=== PATIENT | female | born 1990 | race American Indian/Alaskan Native ===

== ENCOUNTER 2019-04-20 17:07 | Inpatient (IN) | payer MEDICAID ==
[2019-04-20] MEDS ORDERED: Metoclopramide 10 MG/2 ML SDV IVPUSH ONE (17:41)
[2019-04-20] MEDS ORDERED: Citric Acid/Sodium Citrate Solution 30 ML Cup PO ONE (17:41)
[2019-04-20] MEDS ORDERED: Sodium Chloride 0.9% 10 ML Syringe FLUSH PRN (17:41)
[2019-04-20] MEDS ORDERED: Lactated Ringers 1,000 ML IV SCH (17:45)
[2019-04-20] MEDS ORDERED: Lactated Ringers 1,000 ML ONE ×3 (17:48→19:12)
[2019-04-20] MEDS ORDERED: Phenylephrine 1% 10 MG/ML SDV ONE (17:56)
[2019-04-20] MEDS ORDERED: ceFAZolin 1 GM Vial ONE (17:56)
[2019-04-20] MEDS ORDERED: Oxytocin 10 Units/1 ML SDV ONE (17:57)
[2019-04-20] MEDS ORDERED: Morphine PF 10 MG/10 ML SDV ONE (17:57)
--- NOTE | 2019-04-20 18:11 | PCM.LDHP ---
L&D History of Present Illness - General Date of Service: 04/20/19 Admit Problem/Dx: Patient Status Order with Admit Dx/Problem 04/20/19 17:15 Patient Status [ADT] Routine 04/20/19 17:26 Patient Status [ADT] Routine Admission Diagnosis/Problem Admission Diagnosis/Problem Source of Information: Patient History Limitations: Reports: No Limitations - History of Present Illness Introduction:: Patient is a 29 y/o at 39 6/7 wks who presents to L&D with concerns of contractions. Have been present since about 1:00 pm. Worsening recently. No LOF or VB. has been notable for scant care (has had 3 appointments), history of drug use, and hep C positive status. 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: : 4 Para: 3 LMP (Approximate): Psychiatric History: Reports: Addiction, Anxiety, Depression - Infectious Disease History Infectious Disease History: Reports: Hepatitis C - Past Surgical History Female Surgical History: Reports: Section (x3) Musculoskeletal Surgical History: Reports: Other (See Below) Other Musculoskeletal Surgeries/Procedures:: ankle surgery Social & Family History - Tobacco Use Smoking Status *Q: Never Smoker - Alcohol Use Alcohol Use History: No - Recreational Drug Use Recreational Drug Use: Yes Drug Use in Last 12 Months: Yes Recreational Drug Type: Reports: Methamphetamine, Other (see below) (suboxone use - not prescribed to patient) H&P Review of Systems - Review of Systems: Review Of Systems: See Below General: Reports: No Symptoms Pulmonary: Reports: No Symptoms Cardiovascular: Reports: No Symptoms Gastrointestinal: Reports: Abdominal Pain (contractions ) Genitourinary: Reports: No Symptoms Musculoskeletal: Reports: No Symptoms Psychiatric: Reports: Depression, Anxiety L&D Exam - Exam Exam: See Below - Vital Signs Weight: 73.482 kg - OB Specific Contraction Intensity: Moderate Movement: Active Heart Tones: Present Heart Tones per Min: 145 Heart Rate (FHR) Variability: Moderate (6-25 bmp) Presentation: Vertex - Antunez Score Antunez Score Cervix Position: Midposition Antunez Score Consistency: Soft Antunez Score Effacement: >80% Antunez Score Dilation: 3-4 cm Antunez Score 's Station: -2 Antunez Score Total: 9 - Exam General: Alert, Oriented, Cooperative Lungs: Clear to Auscultation, Normal Respiratory Effort Cardiovascular: Regular Rate, Regular Rhythm GI/Abdominal Exam: Soft, Non-Tender Genitourinary: Normal external exam Extremities: Normal Inspection Skin: Warm, Dry, Intact - Patient Data Lab Results Last 24 hrs: Laboratory Results - last 24 hr 04/20/19 Range/Units 05:56 WBC 6.94 (3.98-10.04) K/mm3 RBC 3.80 L (3.98-5.22) M/mm3 Hgb 10.7 L (11.2-15.7) gm/dl Hct 32.3 L (34.1-44.9) % MCV 85.0 (79.4-94.8) fl MCH 28.2 (25.6-32.2) pg MCHC 33.1 (32.2-35.5) g/dl RDW Std Deviation 41.1 (36.4-46.3) fL Plt Count 211 (182-369) K/mm3 MPV 11.1 (9.4-12.3) fl Neut % (Auto) 73.1 H (34.0-71.1) % Lymph % (Auto) 16.1 L (19.3-51.7) % [place] % (Auto) 9.4 (4.7-12.5) % Eos % (Auto) 1.0 (0.7-5.8) Baso % (Auto) 0.1 (0.1-1.2) % Neut # (Auto) 5.07 (1.56-6.13) K/mm3 Lymph # (Auto) 1.12 L (1.18-3.74) K/mm3 [place] # (Auto) 0.65 H (0.24-0.36) K/mm3 Eos # (Auto) 0.07 (0.04-0.36) K/mm3 Baso # (Auto) 0.01 (0.01-0.08) K/mm3 Result Diagrams: 04/20/19 05:56 - Problem List (1) 39 weeks gestation of SNOMED Code(s): 00810713 ICD Code: Z3A.39 - 39 WEEKS GESTATION OF Status: Acute Current Visit: Yes (2) History of SNOMED Code(s): 505862551 ICD Code: Z98.891 - HISTORY OF UTERINE SCAR FROM PREVIOUS SURGERY Status: Acute Current Visit: Yes (3) Hepatitis C SNOMED Code(s): 33436359 ICD Code: B19.20 - UNSPECIFIED VIRAL HEPATITIS C WITHOUT HEPATIC COMA Status: Acute Current Visit: Yes (4) History of inadequate care SNOMED Code(s): 924962876 ICD Code: O09.30 - SUPRVSN OF PREG W INSUFFICIENT ANTENAT CARE, UNSP TRIMESTER Status: Acute Current Visit: Yes (5) History of drug use SNOMED Code(s): 099400292 ICD Code: Z87.898 - PERSONAL HISTORY OF OTHER SPECIFIED CONDITIONS Status: Acute Current Visit: Yes Problem List Initiated/Reviewed/Updated: Yes Orders Last 24hrs: Active Orders 24 hr Category Date Time Status Patient Status [ADT] Routine ADT 04/20/19 17:15 Active Communication Order [RC] ROUTINE Care 04/20/19 17:41 Active Heart Tones [RC] PER UNIT ROUTINE Care 04/20/19 17:41 Active Non Stress Test [RC] PER UNIT ROUTINE Care 04/20/19 17:26 Active Non Stress Test [RC] PER UNIT ROUTINE Care 04/20/19 17:41 Active Peripheral IV Care [RC] . DIRECTED Care 04/20/19 17:42 Active Procedure Site Prep Instruct [RC] ASDIRECTED Care 04/20/19 17:41 Active Verify Patient Consent Obtain [RC] PER UNIT ROUTINE Care 04/20/19 17:41 Active Vital Signs [RC] PER UNIT ROUTINE Care 04/20/19 17:26 Active Vital Signs [RC] PFP Care 04/20/19 17:41 Active Nothing Per Oral Diet [DIET] Diet 10/20/19 Dinner Active DRUG SCREEN, URINE [URCHEM] Stat Lab 04/20/19 17:41 Ordered RAPID PLASMA REAGIN,RPR [CHEM] Routine Lab 04/20/19 05:56 Received TYPE AND SCREEN [BBK] Routine Lab 04/20/19 05:56 Received Lactated Ringers [Ringers, Lactated] 1,000 ml Med 04/20/19 17:45 Active IV ASDIRECTED Sodium Chloride 0.9% [Saline Flush] Med 04/20/19 17:41 Active 10 ml FLUSH ASDIRECTED PRN Peripheral IV Insertion Adult [OM.PC] Routine Oth 04/20/19 17:41 Ordered Schedule Procedure [COMM] Per Unit Routine Oth 04/20/19 17:41 Ordered Resuscitation Status Routine Resus Stat 04/20/19 17:41 Ordered Medication Orders Lactated Ringer's (Ringers, Lactated) 1,000 mls @ 125 mls/hr IV ASDIRECTED SHEA Sodium Chloride (Saline Flush) 10 ml FLUSH ASDIRECTED PRN PRN Reason: Keep Vein Open Assessment/Plan Comment:: 29 y/o at 39 6/7 wks who presents in labor - history of 3 prior c- sections * Labs * UDS for patient * Randy CHARLES * Consent reviewed and signed * Anesthesia and Peds made aware
--- NOTE | 2019-04-20 18:18 | PCM.OPNOTE ---
- General Post-Op/Procedure Note Date of Surgery/Procedure: 04/20/19 Operative Procedure(s): Repeat low transverse Findings: Minimal scarring between rectus and fascia. Bladder somewhat adherent to lower uterine segment. Baby boy in a vertex presentation with APGARS of 6 & 9. Weight of 3480 grams. Pre Op Diagnosis: 39 weeks. Hx of x3 Post-Op Diagnosis: Same Anesthesia Technique: Spinal Primary Surgeon: Raquel Bell Secondary Surgeon: Omar Nguyen Jr Anesthesia Provider: Hood Stephens Reason Route [employer] Was Necessary: Speed, safety of procedure Pathology: Cord blood obtained. Placenta discarded Fluid Replacement, Intraop: 3,000 Output, Urine Amount: 125 EBL in mLs: 850 Complications: None Condition: Good Free Text/Narrative:: The risks, benefits, indications, potential complications, and alternatives were explained to the patient and informed consent obtained. After induction of anesthesia, the patient was placed in a supine position and then draped and prepped in the usual sterile manner. A Pfannenstiel incision was made and carried down through the subcutaneous tissue to the fascia. Fascial incision was made and extended transversely. The fascia was from the underlying rectus tissue superiorly and inferiorly. The peritoneum was identified and entered. Peritoneal incision was extended longitudinally. The utero-vesical peritoneal reflection was incised transversely and the bladder flap was bluntly freed from the lower uterine segment. A low transverse uterine incision was made sharply with a scalpel and extended bluntly in a cephalocaudad direction. An attempt was made to deliver the baby from a vertex presentation, but resistance encountered at rectus muscles. Cautery used to slightly extend incision laterally. Baby then able to be successfully delivered. APGARS as above. After the umbilical cord was clamped and cut cord blood was obtained for evaluation. The placenta was removed intact and appeared normal. The uterus was exteriorized and cleared of clots. The uterine outline, tubes and ovaries appeared normal. The uterine incision was closed with running locked sutures of 0 Vicryl. Hemostasis noted. The uterus was then placed back into the abdomen. The infracolic gutters were cleared of blood clots. The fascia was then reapproximated with running sutures of 0 Vicryl. The subcutaneous tissue was irrigated with sterile warm normal saline, hemostasis obtained with cautery. This layer also closed with a running 0 vicryl. The skin was reapproximated with running Subcuticular 4-0 monocryl sutures. Instrument, sponge, and needle counts were correct prior the abdominal closure and at the conclusion of the case.
[2019-04-20] MEDS ORDERED: Ketorolac 30 MG/ML SDV ONE (19:09)
[2019-04-20] MEDS ORDERED: diphenhydrAMINE 50 MG/ML SDV IVPUSH PRN ×2 (19:27→19:58)
--- NOTE | 2019-04-20 19:28 | PCM.POSTAN ---
POST ANESTHESIA ASSESSMENT - MENTAL STATUS Mental Status: Alert, Oriented - RESPIRATORY Respiratory Status: Respiratory Rate WNL, Airway Patent, O2 Saturation Stable - CARDIOVASCULAR CV Status: Pulse Rate WNL, Blood Pressure Stable - GASTROINTESTINAL GI Status: No Symptoms - PAIN Pain Score: 0 - POST OP HYDRATION Hydration Status: Adequate & Stable - OBSERVATIONS Free Text/Narrative:: no anesthesia complications noted
[2019-04-20] MEDS ORDERED: Oxytocin/Lactated Ringers 10 UNIT/1,000 ML BAG IV ONE (19:31)
[2019-04-20] MEDS ORDERED: Ondansetron 4 MG/2 ML SDV IV PRN (19:58)
[2019-04-20] MEDS ORDERED: ePHEDrine 50 MG/ML SDV IVPUSH PRN (19:58)
[2019-04-20] MEDS ORDERED: Dextrose 5%-Lactated Ringers 1,000 ML IV SCH (19:58)
[2019-04-20] MEDS ORDERED: Methylergonovine 0.2 MG/1 ML Amp ONE (20:39)
[2019-04-20] MEDS ORDERED: Misoprostol 200 MCG Tab ONE (20:39)
[2019-04-20] MEDS: Methylergonovine 0.2 MG/1 ML Amp IM SCH (20:45)
[2019-04-20] MEDS ORDERED: Misoprostol 200 MCG Tab PO ONE (20:45)
[2019-04-20] MEDS ORDERED: fentaNYL 100 MCG/2 ML SDV IVPUSH ONE (21:33)
[2019-04-20] MEDS ORDERED: fentaNYL 100 MCG/2 ML SDV ONE (21:33)
[2019-04-20] MEDS ORDERED: ceFAZolin 1 GM in Premix Bag 1 BAG IV ONE (21:59)
--- NOTE | 2019-04-20 21:59 | PCM.SN ---
- Free Text/Narrative Note: 2199 Called by nursing staff at 2029 due to slow bleeding from patient. Asked to given IM methergine x1 and buccal cytotec 600. In to see patient at 2114. Slight trickle at times noted. Exam done with some clot in JUAN. Manually extracted. Tone overall good. Will given dose of ancef and continue to monitor closely Raquel Bell MD
[2019-04-21] MEDS ORDERED: Methylergonovine 0.2 MG/1 ML Amp ONE (00:32)
[2019-04-21] MEDS: Acetaminophen/oxyCODONE 325-5 MG Tab PO PRN ×5 (00:35→21:04)
[2019-04-21] MEDS: Methylergonovine 0.2 MG/1 ML Amp IM SCH (00:45)
[2019-04-21] MEDS: Ketorolac 30 MG/ML SDV IVPUSH SCH ×3 (01:09→14:08)
--- NOTE | 2019-04-21 07:17 | PCM.PNPP ---
- General Info Date of Service: 04/21/19 Functional Status: Reports: Pain Controlled, Tolerating Diet, Ambulating, Urinating - Review of Systems General: Reports: No Symptoms Pulmonary: Reports: No Symptoms Cardiovascular: Reports: No Symptoms Gastrointestinal: Reports: Abdominal Pain (managed with medications) Genitourinary: Reports: No Symptoms Musculoskeletal: Reports: No Symptoms Neurological: Reports: No Symptoms - Patient Data Vital Signs - Most Recent: Last Vital Signs Temp 36.3 C 04/20/19 20:15 Pulse 63 04/20/19 20:15 Resp 16 04/21/19 07:00 BP 116/75 04/20/19 20:15 Pulse Ox 95 04/21/19 07:00 Weight - Most Recent: 73.482 kg I&O - Last 24 Hours: Intake & Output 04/20/19 04/21/19 04/21/19 22:59 06:59 14:59 Intake Total 300 3000 Output Total 125 125 Balance 175 2875 Lab Results - Last 24 Hours: Laboratory Results - last 24 hr 04/20/19 04/20/19 04/20/19 Range/Units 05:56 05:56 05:56 WBC 6.94 (3.98-10.04) K/mm3 RBC 3.80 L (3.98-5.22) M/mm3 Hgb 10.7 L (11.2-15.7) gm/dl Hct 32.3 L (34.1-44.9) % MCV 85.0 (79.4-94.8) fl MCH 28.2 (25.6-32.2) pg MCHC 33.1 (32.2-35.5) g/dl RDW Std Deviation 41.1 (36.4-46.3) fL Plt Count 211 (182-369) K/mm3 MPV 11.1 (9.4-12.3) fl Neut % (Auto) 73.1 H (34.0-71.1) % Lymph % (Auto) 16.1 L (19.3-51.7) % [place] % (Auto) 9.4 (4.7-12.5) % Eos % (Auto) 1.0 (0.7-5.8) Baso % (Auto) 0.1 (0.1-1.2) % Neut # (Auto) 5.07 (1.56-6.13) K/mm3 Lymph # (Auto) 1.12 L (1.18-3.74) K/mm3 [place] # (Auto) 0.65 H (0.24-0.36) K/mm3 Eos # (Auto) 0.07 (0.04-0.36) K/mm3 Baso # (Auto) 0.01 (0.01-0.08) K/mm3 Free T4 (0.76-1.46) ng/dL TSH 3rd Generation (0.358-3.74) uIU/mL Urine Opiates Screen (PIWXJP=360) Ur Buprenorphine Scrn (CUTOFF=10) Ur Oxycodone Screen (WJU6FS=001) Urine Methadone Screen (IBYEHA=173) Ur Propoxyphene Screen (SFGSDA=313) Ur Barbiturates Screen (ZVVBKH=197) Ur Tricyclics Screen (CCOMRT=046) Ur Phencyclidine Scrn (CUTOFF=25) Ur Amphetamine Screen (TKUCXG=673) U Methamphetamines Scrn (DRZLMJ=601) U Benzodiazepines Scrn (EGIUCH=841) U Cocaine Metab Screen (YUFXKS=688) U Marijuana (THC) Screen (CUTOFF=50) RPR Non-reactive (NONREACTIVE) Blood Type O POSITIVE Gel Antibody Screen Negative 04/20/19 04/20/19 04/21/19 Range/Units 05:56 18:00 05:50 WBC 11.01 H (3.98-10.04) K/mm3 RBC 3.94 L (3.98-5.22) M/mm3 Hgb 11.1 L (11.2-15.7) gm/dl Hct 33.3 L (34.1-44.9) % MCV 84.5 (79.4-94.8) fl MCH 28.2 (25.6-32.2) pg MCHC 33.3 (32.2-35.5) g/dl RDW Std Deviation 40.1 (36.4-46.3) fL Plt Count 201 (182-369) K/mm3 MPV 11.7 (9.4-12.3) fl Neut % (Auto) (34.0-71.1) % Lymph % (Auto) (19.3-51.7) % [place] % (Auto) (4.7-12.5) % Eos % (Auto) (0.7-5.8) Baso % (Auto) (0.1-1.2) % Neut # (Auto) (1.56-6.13) K/mm3 Lymph # (Auto) (1.18-3.74) K/mm3 [place] # (Auto) (0.24-0.36) K/mm3 Eos # (Auto) (0.04-0.36) K/mm3 Baso # (Auto) (0.01-0.08) K/mm3 Free T4 1.04 (0.76-1.46) ng/dL TSH 3rd Generation 0.400 (0.358-3.74) uIU/mL Urine Opiates Screen Negative (IYHVNS=267) Ur Buprenorphine Scrn Presumptive positive (CUTOFF=10) Ur Oxycodone Screen Negative (YGR3ZE=317) Urine Methadone Screen Negative (ELHBPB=963) Ur Propoxyphene Screen Negative (SCSQMQ=340) Ur Barbiturates Screen Negative (HBHWZI=825) Ur Tricyclics Screen Negative (AHQABY=268) Ur Phencyclidine Scrn Negative (CUTOFF=25) Ur Amphetamine Screen Negative (KZYIAX=466) U Methamphetamines Scrn Negative (HPEJMO=603) U Benzodiazepines Scrn Negative (YEONFL=254) U Cocaine Metab Screen Negative (EOXLUG=327) U Marijuana (THC) Screen Negative (CUTOFF=50) RPR (NONREACTIVE) Blood Type Gel Antibody Screen Med Orders - Current: Current Medications Diphenhydramine HCl (Benadryl) 25 mg IVPUSH Q6H PRN PRN Reason: Itching or Nausea Docusate Sodium (Colace) 100 mg PO Q12H PRN PRN Reason: Constipation Ephedrine Sulfate (Ephedrine Sulfate) 5 mg IVPUSH SEECOMMENT PRN PRN Reason: Other Ibuprofen (Motrin) 600 mg PO Q6H PRN PRN Reason: mild pain or fever Ketorolac Tromethamine (Toradol) 30 mg IVPUSH Q6H SHEA Stop: 04/21/19 12:16 Last Admin: 04/21/19 01:09 Dose: 30 mg Ondansetron HCl (Zofran) 4 mg IV Q8H PRN PRN Reason: Nausea/Vomiting Oxycodone/Acetaminophen (Percocet 325-5 Mg) 2 tab PO Q4H PRN PRN Reason: Pain (moderate 4-6) Last Admin: 04/21/19 05:30 Dose: 2 tab Discontinued Medications Citric Acid/Sodium Citrate (Bicitra Solution) 30 ml PO ONETIME ONE Stop: 04/20/19 17:42 Last Admin: 04/20/19 17:58 Dose: 30 ml Diphenhydramine HCl (Benadryl) 25 mg IVPUSH Q6H PRN PRN Reason: Itching Fentanyl (Sublimaze) Confirm Administered Dose 100 mcg .ROUTE .STK-MED ONE Stop: 04/20/19 21:34 Last Admin: 04/21/19 02:45 Dose: Not Given Fentanyl (Sublimaze) 100 mcg IVPUSH ONETIME ONE Stop: 04/20/19 21:34 Last Admin: 04/20/19 21:35 Dose: 100 mcg Lactated Ringer's (Ringers, Lactated) 1,000 mls @ 125 mls[facility] Last Admin: 04/20/19 18:23 Dose: 125 mls/hr Lactated Ringer's (Ringers, Lactated) Confirm Administered Dose 1,000 mls @ as directed .ROUTE .STK-MED ONE Stop: 04/20/19 17:49 Last Admin: 04/20/19 17:59 Dose: 999 mls/hr Oxytocin/Lactated Ringer's (Pitocin In Lr 10 Units/1,000 Ml) Confirm Administered Dose 10 unit in 1,000 mls @ as directed IV .STK-MED ONE Stop: 04/20/19 19:32 Dextrose/Lactated Ringer's (Dextrose 5%-Lactated Ringers) 1,000 mls @ 125 mls/ hr IV [facility] Stop: 04/21/19 03:57 Cefazolin Sodium/Dextrose 1 gm (/ Premix) 50 mls @ 100 mls/hr IV ONETIME ONE Stop: 04/20/19 22:28 Last Admin: 04/20/19 22:00 Dose: 100 mls/hr Cefazolin Sodium/Dextrose (Ancef) Confirm Administered Dose 50 mls @ as directed .ROUTE .STK-MED ONE Stop: 04/20/19 22:01 Last Admin: 04/21/19 02:46 Dose: Not Given Methylergonovine Maleate (Methergine) Confirm Administered Dose 0.2 mg .ROUTE .STK-MED ONE Stop: 04/20/19 20:40 Last Admin: 04/21/19 02:45 Dose: Not Given Methylergonovine Maleate (Methergine) Confirm Administered Dose 0.2 mg .ROUTE .STK-MED ONE Stop: 04/21/19 00:33 Last Admin: 04/21/19 02:46 Dose: Not Given Methylergonovine Maleate (Methergine) 0.2 mg IM Q4H SHEA Stop: 04/21/19 00:46 Last Admin: 04/21/19 00:45 Dose: 0.2 mg Metoclopramide HCl (Reglan) 10 mg IVPUSH ONETIME ONE Stop: 04/20/19 17:42 Last Admin: 04/20/19 17:57 Dose: 10 mg Misoprostol (Cytotec) Confirm Administered Dose 200 mcg .ROUTE .STK-MED ONE Stop: 04/20/19 20:40 Last Admin: 04/21/19 02:45 Dose: Not Given Misoprostol (Cytotec) 600 mcg PO ONETIME ONE Stop: 04/20/19 20:46 Last Admin: 04/20/19 20:45 Dose: 600 mcg Non-Formulary Medication (Venlafaxine [Effexor Xr]) 75 mg PO DAILY SHEA Sodium Chloride (Saline Flush) 10 ml FLUSH ASDIRECTED PRN PRN Reason: Keep Vein Open - Infant Interaction Disposition, : [place] in Room with Family Interaction: Holding Feeding: Bottle Fed Infant Support Person: Mother - Recovery Exam Fundal Tone: Firm Fundal Level: At Umbilicus Fundal Placement: Midline Lochia Amount: Small Lochia Color: Rubra/Red Perineum Description: Intact, Minimal Bruising/Swelling Bladder Status: Voiding Urinary Elimination: Voided - Exam General: Alert, Oriented, Cooperative Lungs: Clear to Auscultation, Normal Respiratory Effort Cardiovascular: Regular Rate, Regular Rhythm GI/Abdominal Exam: Soft, Tender (appropriate post op) Extremities: Normal Inspection Skin: Warm, Dry, Intact Wound/Incisions: Healing Well, No Drainage - Problem List & Annotations (1) 39 weeks gestation of SNOMED Code(s): 05345934 Code(s): Z3A.39 - 39 WEEKS GESTATION OF Status: Acute Current Visit: Yes (2) History of SNOMED Code(s): 694440657 Code(s): Z98.891 - HISTORY OF UTERINE SCAR FROM PREVIOUS SURGERY Status: Acute Current Visit: Yes (3) Hepatitis C SNOMED Code(s): 75893872 Code(s): B19.20 - UNSPECIFIED VIRAL HEPATITIS C WITHOUT HEPATIC COMA Status : Acute Current Visit: Yes (4) History of inadequate care SNOMED Code(s): 310613045 Code(s): O09.30 - SUPRVSN OF PREG W INSUFFICIENT ANTENAT CARE, UNSP TRIMESTER Status: Acute Current Visit: Yes (5) History of drug use SNOMED Code(s): 326543924 Code(s): Z87.898 - PERSONAL HISTORY OF OTHER SPECIFIED CONDITIONS Status: Acute Current Visit: Yes - Problem List Review Problem List Initiated/Reviewed/Updated: Yes - My Orders Last 24 Hours: My Active Orders 04/20/19 17:41 Resuscitation Status Routine 04/20/19 19:58 Activity as Tolerated [RC] .Routine Antiembolic Devices [RC] PER UNIT ROUTINE Communication Order [RC] PER UNIT ROUTINE Intake and Output [RC] Q4H May Shower [RC] PER UNIT ROUTINE Notify Provider Intake and Out [RC] ASDIRECTED RT Incentive Spirometry [RC] Q2HWA Acetaminophen/oxyCODONE [Percocet 325-5 MG] 2 tab PO Q4H PRN Docusate Sodium [Colace] 100 mg PO Q12H PRN Ondansetron [Zofran] 4 mg IV Q8H PRN diphenhydrAMINE [Benadryl] 25 mg IVPUSH Q6H PRN ePHEDrine [ePHEDrine sulfate] 5 mg IVPUSH SEECOMMENT PRN Assess Lochia [WOMSER] Per Unit Routine Assess Uterine Involution [WOMSER] Per Unit Routine Breast Pump [WOMSER] Per Unit Routine Peripheral IV Discontinue [OM.PC] Routine Sequential Compression Device [OM.PC] Per Unit Routine 04/20/19 Breakfast Regular Diet [DIET] 04/21/19 00:15 Ketorolac [Toradol] 30 mg IVPUSH Q6H 04/21/19 18:15 Ibuprofen [Motrin] 600 mg PO Q6H PRN 04/21/19 19:35 Urinary Catheter Removal [RC] Per Unit Routine - Assessment Assessment:: 29 y/o G4 now P4004 POD#1 from [facility] 39 6/ wks - Plan Plan:: * Routine cares * Bottle feeding * Discharge home in 1-2 days
--- NOTE | 2019-04-21 07:25 | PCM48HPAN ---
Post Anesthesia Note - EVALUATION WITHIN 48HRS OF ANESTHETIC Vital Signs in Normal Range: Yes Patient Participated in Evaluation: Yes Respiratory Function Stable: Yes Airway Patent: Yes Cardiovascular Function Stable: Yes Hydration Status Stable: Yes Pain Control Satisfactory: Yes Nausea and Vomiting Control Satisfactory: Yes Mental Status Recovered: Yes Vital Signs: Last Vital Signs Temp 36.3 C 04/20/19 20:15 Pulse 63 04/20/19 20:15 Resp 16 04/21/19 07:00 BP 116/75 04/20/19 20:15 Pulse Ox 95 04/21/19 07:00
[2019-04-21] MEDS ORDERED: VENLAFAXINE 75 MG PO SCH (09:00)
[2019-04-21] MEDS: Ibuprofen 600 MG Tab PO PRN (22:57)
[2019-04-22] MEDS: Acetaminophen/oxyCODONE 325-5 MG Tab PO PRN ×3 (05:20→17:41)
--- NOTE | 2019-04-22 08:18 | PCM.PNPP ---
- General Info Date of Service: 04/22/19 Functional Status: Reports: Pain Controlled, Tolerating Diet, Ambulating, Urinating - Review of Systems General: Reports: No Symptoms Pulmonary: Reports: No Symptoms Cardiovascular: Reports: No Symptoms Gastrointestinal: Reports: Abdominal Pain (managed with medications ) Genitourinary: Reports: No Symptoms Musculoskeletal: Reports: No Symptoms Neurological: Reports: No Symptoms - Patient Data Vital Signs - Most Recent: Last Vital Signs Temp 36.2 C 04/22/19 02:32 Pulse 68 04/22/19 02:32 Resp 14 04/22/19 02:32 BP 99/69 04/22/19 02:32 Pulse Ox 97 04/22/19 02:32 Weight - Most Recent: 73.482 kg I&O - Last 24 Hours: Intake & Output 04/21/19 04/22/19 04/22/19 22:59 06:59 14:59 Intake Total 3000 Output Total 950 125 Balance -950 2875 Lab Results - Last 24 Hours: Laboratory Results - last 24 hr 04/21/19 Range/Units 08:50 Urine Opiates Screen Negative (VPIFZD=083) Ur Buprenorphine Scrn Negative (CUTOFF=10) Ur Oxycodone Screen Presumptive positive H (IIK3ZZ=605) Urine Methadone Screen Negative (XXNPFG=284) Ur Propoxyphene Screen Negative (UKUXUY=554) Ur Barbiturates Screen Negative (SEBFVQ=716) Ur Tricyclics Screen Negative (LKXWPT=504) Ur Phencyclidine Scrn Negative (CUTOFF=25) Ur Amphetamine Screen Negative (MBKAHS=414) U Methamphetamines Scrn Negative (MDBBPJ=527) U Benzodiazepines Scrn Negative (EPFUQJ=191) U Cocaine Metab Screen Negative (YURIWO=461) U Marijuana (THC) Screen Negative (CUTOFF=50) Med Orders - Current: Current Medications Diphenhydramine HCl (Benadryl) 25 mg IVPUSH Q6H PRN PRN Reason: Itching or Nausea Docusate Sodium (Colace) 100 mg PO Q12H PRN PRN Reason: Constipation Ephedrine Sulfate (Ephedrine Sulfate) 5 mg IVPUSH SEECOMMENT PRN PRN Reason: Other Ibuprofen (Motrin) 600 mg PO Q6H PRN PRN Reason: mild pain or fever Last Admin: 04/21/19 22:57 Dose: 600 mg Ondansetron HCl (Zofran) 4 mg IV Q8H PRN PRN Reason: Nausea/Vomiting Oxycodone/Acetaminophen (Percocet 325-5 Mg) 2 tab PO Q4H PRN PRN Reason: Pain (moderate 4-6) Last Admin: 04/22/19 05:20 Dose: 2 tab Discontinued Medications Cefazolin Sodium (Ancef) Confirm Administered Dose 2 gm .ROUTE .STK-MED ONE Stop: 04/20/19 17:57 Citric Acid/Sodium Citrate (Bicitra Solution) 30 ml PO ONETIME ONE Stop: 04/20/19 17:42 Last Admin: 04/20/19 17:58 Dose: 30 ml Diphenhydramine HCl (Benadryl) 25 mg IVPUSH Q6H PRN PRN Reason: Itching Fentanyl (Sublimaze) Confirm Administered Dose 100 mcg .ROUTE .STK-MED ONE Stop: 04/20/19 21:34 Last Admin: 04/21/19 02:45 Dose: Not Given Fentanyl (Sublimaze) 100 mcg IVPUSH ONETIME ONE Stop: 04/20/19 21:34 Last Admin: 04/20/19 21:35 Dose: 100 mcg Lactated Ringer's (Ringers, Lactated) 1,000 mls @ 125 mls/hr IV ASDIRECTED [facility] Last Admin: 04/20/19 18:23 Dose: 125 mls/hr Lactated Ringer's (Ringers, Lactated) Confirm Administered Dose 1,000 mls @ as directed .ROUTE .STK-MED ONE Stop: 04/20/19 17:49 Last Admin: 04/20/19 17:59 Dose: 999 mls/hr Oxytocin/Lactated Ringer's (Pitocin In Lr 10 Units/1,000 Ml) Confirm Administered Dose 10 unit in 1,000 mls @ as directed IV .STK-MED ONE Stop: 04/20/19 19:32 Last Admin: 04/21/19 15:47 Dose: Not Given Dextrose/Lactated Ringer's (Dextrose 5%-Lactated Ringers) 1,000 mls @ 125 mls/ hr IV ASDIRECTED [facility] Stop: 04/21/19 03:57 Cefazolin Sodium/Dextrose 1 gm (/ Premix) 50 mls @ 100 mls/hr IV ONETIME ONE Stop: 04/20/19 22:28 Last Admin: 04/20/19 22:00 Dose: 100 mls/hr Cefazolin Sodium/Dextrose (Ancef) Confirm Administered Dose 50 mls @ as directed .ROUTE .STK-MED ONE Stop: 04/20/19 22:01 Last Admin: 04/21/19 02:46 Dose: Not Given Lactated Ringer's (Ringers, Lactated) Confirm Administered Dose 1,000 mls @ as directed .ROUTE .STK-MED ONE Stop: 04/20/19 19:01 Lactated Ringer's (Ringers, Lactated) Confirm Administered Dose 1,000 mls @ as directed .ROUTE .STK-MED ONE Stop: 04/20/19 19:13 Ketorolac Tromethamine (Toradol) 30 mg IVPUSH Q6H [facility] Stop: 04/21/19 12:16 Last Admin: 04/21/19 14:08 Dose: 30 mg Ketorolac Tromethamine (Toradol) Confirm Administered Dose 30 mg .ROUTE .STK- MED ONE Stop: 04/20/19 19:10 Methylergonovine Maleate (Methergine) Confirm Administered Dose 0.2 mg .ROUTE .STK-MED ONE Stop: 04/20/19 20:40 Last Admin: 04/21/19 02:45 Dose: Not Given Methylergonovine Maleate (Methergine) Confirm Administered Dose 0.2 mg .ROUTE .STK-MED ONE Stop: 04/21/19 00:33 Last Admin: 04/21/19 02:46 Dose: Not Given Methylergonovine Maleate (Methergine) 0.2 mg IM Q4H [facility] Stop: 04/21/19 00:46 Last Admin: 04/21/19 00:45 Dose: 0.2 mg Metoclopramide HCl (Reglan) 10 mg IVPUSH ONETIME ONE Stop: 04/20/19 17:42 Last Admin: 04/20/19 17:57 Dose: 10 mg Misoprostol (Cytotec) Confirm Administered Dose 200 mcg .ROUTE .STK-MED ONE Stop: 04/20/19 20:40 Last Admin: 04/21/19 02:45 Dose: Not Given Misoprostol (Cytotec) 600 mcg PO ONETIME ONE Stop: 04/20/19 20:46 Last Admin: 04/20/19 20:45 Dose: 600 mcg Morphine Sulfate (Duramorph Pf) Confirm Administered Dose 10 mg .ROUTE .STK-MED ONE Stop: 04/20/19 17:58 Non-Formulary Medication (Venlafaxine [Effexor Xr]) 75 mg PO DAILY SHEA Oxytocin (Pitocin) Confirm Administered Dose 10 unit .ROUTE .STK-MED ONE Stop: 04/20/19 17:58 Phenylephrine HCl (Donald-Synephrine) Confirm Administered Dose 10 mg .ROUTE .STK- MED ONE Stop: 04/20/19 17:57 Sodium Chloride (Saline Flush) 10 ml FLUSH ASDIRECTED PRN PRN Reason: Keep Vein Open - Interaction Infant Disposition, : [place] in Room with Family Interaction: Holding Infant Infant Feeding: Bottle Fed Support Person: Mother - Recovery Exam Fundal Tone: Firm Fundal Level: At Umbilicus Fundal Placement: Midline Lochia Amount: Small Lochia Color: Rubra/Red Perineum Description: Intact, Minimal Bruising/Swelling Other Perinuem Description: swollen Rt labia Episiotomy/Laceration: None Bladder Status: Voiding Urinary Elimination: Voided - Exam General: Alert, Oriented, Cooperative Lungs: Clear to Auscultation, Normal Respiratory Effort Cardiovascular: Regular Rate, Regular Rhythm GI/Abdominal Exam: Soft, Non-Tender Extremities: Normal Inspection Skin: Warm, Dry, Intact Wound/Incisions: Healing Well, No Drainage - Problem List & Annotations (1) 39 weeks gestation of SNOMED Code(s): 61909300 Code(s): Z3A.39 - 39 WEEKS GESTATION OF Status: Acute Current Visit: Yes (2) History of SNOMED Code(s): 071680611 Code(s): Z98.891 - HISTORY OF UTERINE SCAR FROM PREVIOUS SURGERY Status: Acute Current Visit: Yes (3) Hepatitis C SNOMED Code(s): 02787246 Code(s): B19.20 - UNSPECIFIED VIRAL HEPATITIS C WITHOUT HEPATIC COMA Status : Acute Current Visit: Yes (4) History of inadequate care SNOMED Code(s): 014020043 Code(s): O09.30 - SUPRVSN OF PREG W INSUFFICIENT ANTENAT CARE, UNSP TRIMESTER Status: Acute Current Visit: Yes (5) History of drug use SNOMED Code(s): 859148948 Code(s): Z87.898 - PERSONAL HISTORY OF OTHER SPECIFIED CONDITIONS Status: Acute Current Visit: Yes - Problem List Review Problem List Initiated/Reviewed/Updated: Yes - My Orders Last 24 Hours: My Active Orders 04/21/19 18:15 Ibuprofen [Motrin] 600 mg PO Q6H PRN - Assessment Assessment:: 29 y/o G4 now P4004 POD#2 from TCS 39 6/7 wks - Plan Plan:: * Routine cares * Bottle feeding * Discharge home tomorrow
[2019-04-22] MEDS: Ibuprofen 600 MG Tab PO PRN ×3 (08:26→21:27)
[2019-04-22] MEDS: Docusate Sodium 100 MG Cap PO PRN (15:35)
[2019-04-23] MEDS: Acetaminophen/oxyCODONE 325-5 MG Tab PO PRN ×2 (01:01→07:15)
[2019-04-23] MEDS: Ibuprofen 600 MG Tab PO PRN (03:26)
[2019-04-23] MEDS: Docusate Sodium 100 MG Cap PO PRN (03:27)
--- NOTE | 2019-04-23 06:34 | PCM.PNPP ---
- General Info Date of Service: 04/23/19 Functional Status: Reports: Pain Controlled, Tolerating Diet, Ambulating, Urinating - Review of Systems General: Reports: No Symptoms Pulmonary: Reports: No Symptoms Cardiovascular: Reports: No Symptoms Gastrointestinal: Reports: Abdominal Pain (managed with medications ) Genitourinary: Reports: No Symptoms Musculoskeletal: Reports: No Symptoms Neurological: Reports: No Symptoms - Patient Data Vital Signs - Most Recent: Last Vital Signs Temp 35.8 C 04/23/19 03:25 Pulse 62 04/23/19 03:25 Resp 14 04/23/19 03:25 BP 116/68 04/23/19 03:25 Pulse Ox 97 04/23/19 03:25 Weight - Most Recent: 73.482 kg I&O - Last 24 Hours: Intake & Output 04/22/19 04/22/19 04/23/19 14:59 22:59 06:59 Intake Total 180 540 Balance 180 540 Med Orders - Current: Current Medications Diphenhydramine HCl (Benadryl) 25 mg IVPUSH Q6H PRN PRN Reason: Itching or Nausea Docusate Sodium (Colace) 100 mg PO Q12H PRN PRN Reason: Constipation Last Admin: 04/23/19 03:27 Dose: 100 mg Ephedrine Sulfate (Ephedrine Sulfate) 5 mg IVPUSH SEECOMMENT PRN PRN Reason: Other Ibuprofen (Motrin) 600 mg PO Q6H PRN PRN Reason: mild pain or fever Last Admin: 04/23/19 03:26 Dose: 600 mg Ondansetron HCl (Zofran) 4 mg IV Q8H PRN PRN Reason: Nausea/Vomiting Oxycodone/Acetaminophen (Percocet 325-5 Mg) 2 tab PO Q4H PRN PRN Reason: Pain (moderate 4-6) Last Admin: 04/23/19 01:01 Dose: 2 tab Discontinued Medications Cefazolin Sodium (Ancef) Confirm Administered Dose 2 gm .ROUTE .STK-MED ONE Stop: 04/20/19 17:57 Citric Acid/Sodium Citrate (Bicitra Solution) 30 ml PO ONETIME ONE Stop: 04/20/19 17:42 Last Admin: 04/20/19 17:58 Dose: 30 ml Diphenhydramine HCl (Benadryl) 25 mg IVPUSH Q6H PRN PRN Reason: Itching Fentanyl (Sublimaze) Confirm Administered Dose 100 mcg .ROUTE .STK-MED ONE Stop: 04/20/19 21:34 Last Admin: 04/21/19 02:45 Dose: Not Given Fentanyl (Sublimaze) 100 mcg IVPUSH ONETIME ONE Stop: 04/20/19 21:34 Last Admin: 04/20/19 21:35 Dose: 100 mcg Lactated Ringer's (Ringers, Lactated) 1,000 mls @ [facility] Last Admin: 04/20/19 18:23 Dose: 125 mls/hr Lactated Ringer's (Ringers, Lactated) Confirm Administered Dose 1,000 mls @ as directed .ROUTE .STK-MED ONE Stop: 04/20/19 17:49 Last Admin: 04/20/19 17:59 Dose: 999 mls/hr Oxytocin/Lactated Ringer's (Pitocin In Lr 10 Units/1,000 Ml) Confirm Administered Dose 10 unit in 1,000 mls @ as directed IV .STK-MED ONE Stop: 04/20/19 19:32 Last Admin: 04/21/19 15:47 Dose: Not Given Dextrose/Lactated Ringer's (Dextrose 5%-Lactated Ringers) 1,000 mls @ 125 mls/ hr IV [facility] Stop: 04/21/19 03:57 Cefazolin Sodium/Dextrose 1 gm (/ Premix) 50 mls @ 100 mls/hr IV ONETIME ONE Stop: 04/20/19 22:28 Last Admin: 04/20/19 22:00 Dose: 100 mls/hr Cefazolin Sodium/Dextrose (Ancef) Confirm Administered Dose 50 mls @ as directed .ROUTE .STK-MED ONE Stop: 04/20/19 22:01 Last Admin: 04/21/19 02:46 Dose: Not Given Lactated Ringer's (Ringers, Lactated) Confirm Administered Dose 1,000 mls @ as directed .ROUTE .STK-MED ONE Stop: 04/20/19 19:01 Lactated Ringer's (Ringers, Lactated) Confirm Administered Dose 1,000 mls @ as directed .ROUTE .STK-MED ONE Stop: 04/20/19 19:13 Ketorolac Tromethamine (Toradol) 30 mg IVPUSH Q6H [facility] Stop: 04/21/19 12:16 Last Admin: 04/21/19 14:08 Dose: 30 mg Ketorolac Tromethamine (Toradol) Confirm Administered Dose 30 mg .ROUTE .STK- MED ONE Stop: 04/20/19 19:10 Methylergonovine Maleate (Methergine) Confirm Administered Dose 0.2 mg .ROUTE .STK-MED ONE Stop: 04/20/19 20:40 Last Admin: 04/21/19 02:45 Dose: Not Given Methylergonovine Maleate (Methergine) Confirm Administered Dose 0.2 mg .ROUTE .STK-MED ONE Stop: 04/21/19 00:33 Last Admin: 04/21/19 02:46 Dose: Not Given Methylergonovine Maleate (Methergine) 0.2 mg IM Q4H [facility] Stop: 04/21/19 00:46 Last Admin: 04/21/19 00:45 Dose: 0.2 mg Metoclopramide HCl (Reglan) 10 mg IVPUSH ONETIME ONE Stop: 04/20/19 17:42 Last Admin: 04/20/19 17:57 Dose: 10 mg Misoprostol (Cytotec) Confirm Administered Dose 200 mcg .ROUTE .STK-MED ONE Stop: 04/20/19 20:40 Last Admin: 04/21/19 02:45 Dose: Not Given Misoprostol (Cytotec) 600 mcg PO ONETIME ONE Stop: 04/20/19 20:46 Last Admin: 04/20/19 20:45 Dose: 600 mcg Morphine Sulfate (Duramorph Pf) Confirm Administered Dose 10 mg .ROUTE .STK-MED ONE Stop: 04/20/19 17:58 Non-Formulary Medication (Venlafaxine [Effexor Xr]) 75 mg PO DAILY [facility] Oxytocin (Pitocin) Confirm Administered Dose 10 unit .ROUTE .STK-MED ONE Stop: 04/20/19 17:58 Phenylephrine HCl (Donald-Synephrine) Confirm Administered Dose 10 mg .ROUTE .STK- MED ONE Stop: 04/20/19 17:57 Sodium Chloride (Saline Flush) 10 ml FLUSH ASDIRECTED PRN PRN Reason: Keep Vein Open - Interaction Disposition, : [place] in Room with Family Interaction: Holding Infant Feeding: Bottle Fed Infant Support Person: Mother - Recovery Exam Fundal Tone: Firm Fundal Level: 1 Fingerbreadths Below Umbilicus Fundal Placement: Midline Lochia Amount: Small Lochia Color: Rubra/Red Perineum Description: Intact, Minimal Bruising/Swelling Other Perinuem Description: swollen Rt labia Episiotomy/Laceration: None Bladder Status: Voiding Urinary Elimination: Voided - Exam General: Alert, Oriented, Cooperative Lungs: Clear to Auscultation, Normal Respiratory Effort Cardiovascular: Regular Rate, Regular Rhythm GI/Abdominal Exam: Soft, Non-Tender Extremities: Normal Inspection Skin: Warm, Dry, Intact Wound/Incisions: Healing Well, No Drainage - Problem List & Annotations (1) 39 weeks gestation of SNOMED Code(s): 67290566 Code(s): Z3A.39 - 39 WEEKS GESTATION OF Status: Acute Current Visit: Yes (2) History of SNOMED Code(s): 796268972 Code(s): Z98.891 - HISTORY OF UTERINE SCAR FROM PREVIOUS SURGERY Status: Acute Current Visit: Yes (3) Hepatitis C SNOMED Code(s): 67494647 Code(s): B19.20 - UNSPECIFIED VIRAL HEPATITIS C WITHOUT HEPATIC COMA Status : Acute Current Visit: Yes (4) History of inadequate care SNOMED Code(s): 795847015 Code(s): O09.30 - SUPRVSN OF PREG W INSUFFICIENT ANTENAT CARE, UNSP TRIMESTER Status: Acute Current Visit: Yes (5) History of drug use SNOMED Code(s): 928301218 Code(s): Z87.898 - PERSONAL HISTORY OF OTHER SPECIFIED CONDITIONS Status: Acute Current Visit: Yes - Problem List Review Problem List Initiated/Reviewed/Updated: Yes - Assessment Assessment:: 29 y/o G4 now P4004 POD#3 from RLTCS 39 6/7 wks - Plan Plan:: * Routine cares * Bottle feeding * Discharge home today
--- NOTE | 2019-04-23 06:36 | PCM.DCSUM1 ---
Discharge Summary - Discharge Data Discharge Date: 04/23/19 Discharge Disposition: Home, Self-Care 01 Condition: Good - Referral to Home Health Primary Care Physician: Maria G Flores MD - Discharge Diagnosis/Problem(s) (1) 39 weeks gestation of SNOMED Code(s): 25938685 ICD Code: Z3A.39 - 39 WEEKS GESTATION OF Status: Acute Current Visit: Yes (2) History of SNOMED Code(s): 298328929 ICD Code: Z98.891 - HISTORY OF UTERINE SCAR FROM PREVIOUS SURGERY Status: Acute Current Visit: Yes (3) Hepatitis C SNOMED Code(s): 59570882 ICD Code: B19.20 - UNSPECIFIED VIRAL HEPATITIS C WITHOUT HEPATIC COMA Status: Acute Current Visit: Yes (4) History of inadequate care SNOMED Code(s): 919136559 ICD Code: O09.30 - SUPRVSN OF PREG W INSUFFICIENT ANTENAT CARE, UNSP TRIMESTER Status: Acute Current Visit: Yes (5) History of drug use SNOMED Code(s): 373551954 ICD Code: Z87.898 - PERSONAL HISTORY OF OTHER SPECIFIED CONDITIONS Status: Acute Current Visit: Yes - Patient Summary/Data Operative Procedure(s) Performed: Repeat low transverse Complications: None Consults: None Recommended Follow-up Testing/Procedures: Follow up in 1 week for post op check Hospital Course: 29 y/o at 39 6/7 wks who presented in early labor. Hx of 3 prior c- section and so taken for urgent . Procedure was uncomplicated. See operative note for full details. she did well and was discharged home on POD#3 - Patient Instructions Diet: Regular Diet as Tolerated Activity: No Lifting Over 10 Pounds Activity, Other: Pelvic rest for 6 weeks Driving: Do Not Drive (while taking narcotics ) Showering/Bathing: May Shower, No Tub Bathing/Swimming Wound/Incision Care: Keep Operative Site/Wound Site Clean and Dry Notify Provider of: Fever, Increased Pain, Swelling and Redness, Drainage, Nausea and/or Vomiting - Discharge Plan *PRESCRIPTION DRUG MONITORING PROGRAM REVIEWED*: No *COPY OF PRESCRIPTION DRUG MONITORING REPORT IN PATIENT GENESIS: No Prescriptions/Med Rec: Acetaminophen/oxyCODONE [Percocet 325-5 MG] 2 tab PO Q4H PRN #20 tablet PRN Reason: Pain (Moderate 4-6) Home Medications: Home Meds Venlafaxine [Effexor XR] 150 mg PO DAILY 03/13/15 [History] Pnv No.122/Iron/Folic Acid [ Multi Tablet] 1 each PO DAILY 04/20/19 [ History] Acetaminophen/oxyCODONE [Percocet 325-5 MG] 2 tab PO Q4H PRN #20 tablet [Rx] Docusate Sodium [Colace] 100 mg PO Q12H PRN cap 04/23/19 [Rx] Ibuprofen [Motrin] 600 mg PO Q6H PRN tablet 04/23/19 [Rx] Patient Handouts: Delivery, Care After Referrals: Maria G Flores MD [Primary Care Provider] - (1 week for incision check ) - Discharge Summary/Plan Comment DC Time >30 min.: No - Patient Data Vitals - Most Recent: Last Vital Signs Temp 35.8 C 04/23/19 03:25 Pulse 62 04/23/19 03:25 Resp 14 04/23/19 03:25 BP 116/68 04/23/19 03:25 Pulse Ox 97 04/23/19 03:25 Weight - Most Recent: 73.482 kg I&O - Last 24 hours: Intake & Output 04/22/19 04/22/19 04/23/19 14:59 22:59 06:59 Intake Total 180 540 Balance 180 540 Med Orders - Current: Current Medications Diphenhydramine HCl (Benadryl) 25 mg IVPUSH Q6H PRN PRN Reason: Itching or Nausea Docusate Sodium (Colace) 100 mg PO Q12H PRN PRN Reason: Constipation Last Admin: 04/23/19 03:27 Dose: 100 mg Ephedrine Sulfate (Ephedrine Sulfate) 5 mg IVPUSH SEECOMMENT PRN PRN Reason: Other Ibuprofen (Motrin) 600 mg PO Q6H PRN PRN Reason: mild pain or fever Last Admin: 04/23/19 03:26 Dose: 600 mg Ondansetron HCl (Zofran) 4 mg IV Q8H PRN PRN Reason: Nausea/Vomiting Oxycodone/Acetaminophen (Percocet 325-5 Mg) 2 tab PO Q4H PRN PRN Reason: Pain (moderate 4-6) Last Admin: 04/23/19 01:01 Dose: 2 tab Discontinued Medications Cefazolin Sodium (Ancef) Confirm Administered Dose 2 gm .ROUTE .STK-MED ONE Stop: 04/20/19 17:57 Citric Acid/Sodium Citrate (Bicitra Solution) 30 ml PO ONETIME ONE Stop: 04/20/19 17:42 Last Admin: 04/20/19 17:58 Dose: 30 ml Diphenhydramine HCl (Benadryl) 25 mg IVPUSH Q6H PRN PRN Reason: Itching Fentanyl (Sublimaze) Confirm Administered Dose 100 mcg .ROUTE .STK-MED ONE Stop: 04/20/19 21:34 Last Admin: 04/21/19 02:45 Dose: Not Given Fentanyl (Sublimaze) 100 mcg IVPUSH ONETIME ONE Stop: 04/20/19 21:34 Last Admin: 04/20/19 21:35 Dose: 100 mcg Lactated Ringer's (Ringers, Lactated) 1,000 mls @ 125 mls/hr IV ASDIRECTED [facility] Last Admin: 04/20/19 18:23 Dose: 125 mls/hr Lactated Ringer's (Ringers, Lactated) Confirm Administered Dose 1,000 mls @ as directed .ROUTE .STK-MED ONE Stop: 04/20/19 17:49 Last Admin: 04/20/19 17:59 Dose: 999 mls/hr Oxytocin/Lactated Ringer's (Pitocin In Lr 10 Units/1,000 Ml) Confirm Administered Dose 10 unit in 1,000 mls @ as directed IV .STK-MED ONE Stop: 04/20/19 19:32 Last Admin: 04/21/19 15:47 Dose: Not Given Dextrose/Lactated Ringer's (Dextrose 5%-Lactated Ringers) 1,000 mls @ 125 mls/ hr IV ASDIRECTED [facility] Stop: 04/21/19 03:57 Cefazolin Sodium/Dextrose 1 gm (/ Premix) 50 mls @ 100 mls/hr IV ONETIME ONE Stop: 04/20/19 22:28 Last Admin: 04/20/19 22:00 Dose: 100 mls/hr Cefazolin Sodium/Dextrose (Ancef) Confirm Administered Dose 50 mls @ as directed .ROUTE .STK-MED ONE Stop: 04/20/19 22:01 Last Admin: 04/21/19 02:46 Dose: Not Given Lactated Ringer's (Ringers, Lactated) Confirm Administered Dose 1,000 mls @ as directed .ROUTE .STK-MED ONE Stop: 04/20/19 19:01 Lactated Ringer's (Ringers, Lactated) Confirm Administered Dose 1,000 mls @ as directed .ROUTE .STK-MED ONE Stop: 04/20/19 19:13 Ketorolac Tromethamine (Toradol) 30 mg IVPUSH Q6H [facility] Stop: 04/21/19 12:16 Last Admin: 04/21/19 14:08 Dose: 30 mg Ketorolac Tromethamine (Toradol) Confirm Administered Dose 30 mg .ROUTE .STK- MED ONE Stop: 04/20/19 19:10 Methylergonovine Maleate (Methergine) Confirm Administered Dose 0.2 mg .ROUTE .STK-MED ONE Stop: 04/20/19 20:40 Last Admin: 04/21/19 02:45 Dose: Not Given Methylergonovine Maleate (Methergine) Confirm Administered Dose 0.2 mg .ROUTE .STK-MED ONE Stop: 04/21/19 00:33 Last Admin: 04/21/19 02:46 Dose: Not Given Methylergonovine Maleate (Methergine) 0.2 mg IM Q4H [facility] Stop: 04/21/19 00:46 Last Admin: 04/21/19 00:45 Dose: 0.2 mg Metoclopramide HCl (Reglan) 10 mg IVPUSH ONETIME ONE Stop: 04/20/19 17:42 Last Admin: 04/20/19 17:57 Dose: 10 mg Misoprostol (Cytotec) Confirm Administered Dose 200 mcg .ROUTE .STK-MED ONE Stop: 04/20/19 20:40 Last Admin: 04/21/19 02:45 Dose: Not Given Misoprostol (Cytotec) 600 mcg PO ONETIME ONE Stop: 04/20/19 20:46 Last Admin: 04/20/19 20:45 Dose: 600 mcg Morphine Sulfate (Duramorph Pf) Confirm Administered Dose 10 mg .ROUTE .STK-MED ONE Stop: 04/20/19 17:58 Non-Formulary Medication (Venlafaxine [Effexor Xr]) 75 mg PO DAILY [facility] Oxytocin (Pitocin) Confirm Administered Dose 10 unit .ROUTE .STK-MED ONE Stop: 04/20/19 17:58 Phenylephrine HCl (Donald-Synephrine) Confirm Administered Dose 10 mg .ROUTE .STK- MED ONE Stop: 04/20/19 17:57 Sodium Chloride (Saline Flush) 10 ml FLUSH ASDIRECTED PRN PRN Reason: Keep Vein Open
[2019-04-23 09:23] VITALS: BP 118/96; PULSE 75
== END 2019-04-23 13:54 | disposition home or self-care (01) | DRG 787 ==
LOC: JD.OB 17:07 → JD.OBCHECK 17:07 → JD.OB 18:18 → OBSVTOIN 18:53 → JD.OB 18:54
PROVIDERS: ADMIT Obstetrics & Gynecology; ATTEND Obstetrics & Gynecology
PROC: 10D00Z1 Extraction of Products of Conception, Low, Open Approach (ICD-10-PCS; principal; 2019-04-20)
DX: O34.211 Maternal care for low transverse scar from previous cesarean delivery (principal); O99.834 Other infection carrier state complicating childbirth; B18.2 Chronic viral hepatitis C; Z3A.39 39 weeks gestation of pregnancy; Z37.0 Single live birth; Z79.899 Other long term (current) drug therapy; Z88.8 Allergy status to other drugs, medicaments and biological substances
CPT/HCPCS: 01961; 36415; 59025; 80306; 84439; 84443; 85025; 85027; 86592; 86850; 86900; 86901; A9270-GY; J0690; J1885; J2210; J2270; J2370; J2590; J2765; J3010; J7120